=== PATIENT | male | born 1990 | race Caucasian/White ===

== ENCOUNTER 2017-07-20 00:28 | Emergency (ER) | payer SELFPAY ==
--- NOTE | 2017-07-20 00:41 | EDM.PDOC ---
ED HPI GENERAL MEDICAL PROBLEM - General Chief Complaint: Behavioral/Psych Stated Complaint: MENTAL HEALTH EVALUATION Time Seen by Provider: 07/20/17 00:39 - History of Present Illness INITIAL COMMENTS - FREE TEXT/NARRATIVE: HISTORY AND PHYSICAL: History of present illness: Patient 26-year-old male with history of depression who presents with a concern of a depressive episode with long enforcement law enforcement was called and patient expressed suicidal ideation to his sister. He states he still is suicidal and has no plan Review of systems: As per history of present illness and below otherwise all systems reviewed and negative. Past medical history: As per history of present illness and as reviewed below otherwise noncontributory. Surgical history: As per history of present illness and as reviewed below otherwise noncontributory. Social history: No reported history of drug or alcohol abuse. Family history: As per history of present illness and as reviewed below otherwise noncontributory. Physical exam: HEENT: Atraumatic, normocephalic, pupils reactive, negative for conjunctival pallor or scleral icterus, mucous membranes moist, throat clear, neck supple, nontender, trachea midline. Lungs: Clear to auscultation, breath sounds equal bilaterally, chest nontender. Heart: S1S2, regular, negative for clicks, rubs, or JVD. Abdomen: Soft, nondistended, nontender. Negative for masses or hepatosplenomegaly. Negative for costovertebral tenderness. Pelvis: Stable nontender. Genitourinary: Deferred. Rectal: Deferred. Extremities: Atraumatic, negative for cords or calf pain. Neurovascular unremarkable. Neuro: Awake, alert, oriented. Cranial nerves II through XII unremarkable. Cerebellum unremarkable. Motor and sensory unremarkable throughout. Exam nonfocal. Diagnostics: CBC CMP EtOH urine drug screen aspirin Tylenol Therapeutics: None Impression: #1 depressive episode with suicidal ideation Definitive disposition and diagnosis as appropriate pending reevaluation and review of above. - Related Data Allergies Allergy/AdvReac Type Severity Reaction Status Date / Time No Known Allergies Allergy Verified 07/20/17 00:32 Home Meds: Home Meds Escitalopram [Lexapro] 20 mg PO DAILY 07/20/17 [History] ED ROS GENERAL - Review of Systems Review Of Systems: ROS reveals no pertinent complaints other than HPI. ED EXAM, GENERAL - Physical Exam Exam: See Below (See dictated) Course - Vital Signs Last Recorded V/S: Last Vital Signs Temp 37.0 C 07/20/17 00:28 Pulse 121 H 07/20/17 00:28 Resp 18 07/20/17 00:28 BP 163/102 H 07/20/17 00:28 Pulse Ox 121 H 07/20/17 00:28 - Orders/Labs/Meds Orders: Active Orders 24 hr Category Date Time Status EKG Documentation Completion [RC] STAT Care 07/20/17 00:40 Active FREE T3 [REF] Stat Lab 07/20/17 00:56 Received Labs: Laboratory Tests 07/20/17 07/20/17 07/20/17 Range/Units 00:45 00:45 00:56 WBC 8.84 (4.0-11.0) K/uL RBC 5.42 (4.50-5.90) M/uL Hgb 16.7 (13.0-17.0) g/dL Hct 47.3 (38.0-50.0) % MCV 87.3 (80.0-98.0) fL MCH 30.8 (27.0-32.0) pg MCHC 35.3 (31.0-37.0) g/dL RDW Std Deviation 38.1 (28.0-62.0) fl RDW Coeff of Jerad 12 (11.0-15.0) % Plt Count 204 (150-400) K/uL MPV 9.20 (7.40-12.00) fL Neut % (Auto) 51.7 (48.0-80.0) % Lymph % (Auto) 39.5 (16.0-40.0) % [place] % (Auto) 5.9 (0.0-15.0) % Eos % (Auto) 2.7 (0.0-7.0) % Baso % (Auto) 0.2 (0.0-1.5) % Neut # (Auto) 4.6 (1.4-5.7) K/uL Lymph # (Auto) 3.5 H (0.6-2.4) K/uL [place] # (Auto) 0.5 (0.0-0.8) K/uL Eos # (Auto) 0.2 (0.0-0.7) K/uL Baso # (Auto) 0.0 (0.0-0.1) K/uL Sodium (136-146) mmol/L Potassium (3.5-5.1) mmol/L Chloride (98-110) mmol/L Carbon Dioxide (21-31) mmol/L BUN (6.0-23.0) mg/dL Creatinine (0.6-1.5) mg/dL Est Cr Clr Drug Dosing mL/min Estimated GFR (MDRD) ml/min Glucose (60-110) mg/dL Calcium (8.8-10.8) mg/dL Magnesium (1.5-2.3) mEq/L Total Bilirubin (0.1-1.5) mg/dL AST (5-40) IU/L ALT (8-54) IU/L Alkaline Phosphatase (40-150) Total Protein (6.0-8.0) g/dL Albumin (3.5-5.0) g/dL Globulin (2.0-3.5) g/dL Albumin/Globulin Ratio (1.3-2.8) TSH 3rd Generation (0.47-5.0) uIU/mL Urine Color YELLOW Urine Appearance CLEAR Urine pH 6.0 (5.0-8.0) Ur Specific Margie <= 1.005 (1.001-1.035) Urine Protein NEGATIVE (NEGATIVE) mg/dL Urine Glucose (UA) NEGATIVE (NEGATIVE) mg/dL Urine Ketones NEGATIVE (NEGATIVE) mg/dL Urine Occult Blood NEGATIVE (NEGATIVE) Urine Nitrite NEGATIVE (NEGATIVE) Urine Bilirubin NEGATIVE (NEGATIVE) Urine Urobilinogen 0.2 (<2.0) EU/dL Ur Leukocyte Esterase NEGATIVE (NEGATIVE) Urine RBC 0-1 (0-2/HPF) Urine WBC 0-1 (0-5/HPF) Ur Epithelial Cells RARE (NONE-FEW) Urine Bacteria RARE (NEGATIVE) Salicylates (0-20) mg/dL Urine Opiates Screen NEGATIVE (NEGATIVE) Ur Oxycodone Screen NEGATIVE (NEGATIVE) Urine Methadone Screen NEGATIVE (NEGATIVE) Acetaminophen ug/mL Ur Barbiturates Screen NEGATIVE (NEGATIVE) Ur Phencyclidine Scrn NEGATIVE (NEGATIVE) Ur Amphetamine Screen NEGATIVE (NEGATIVE) U Methamphetamines Scrn NEGATIVE (NEGATIVE) U Benzodiazepines Scrn NEGATIVE (NEGATIVE) U Cocaine Metab Screen NEGATIVE (NEGATIVE) U Marijuana (THC) Screen NEGATIVE (NEGATIVE) Ethyl Alcohol mg/dL 07/20/17 Range/Units 00:56 WBC (4.0-11.0) K/uL RBC (4.50-5.90) M/uL Hgb (13.0-17.0) g/dL Hct (38.0-50.0) % MCV (80.0-98.0) fL MCH (27.0-32.0) pg MCHC (31.0-37.0) g/dL RDW Std Deviation (28.0-62.0) fl RDW Coeff of Jerad (11.0-15.0) % Plt Count (150-400) K/uL MPV (7.40-12.00) fL Neut % (Auto) (48.0-80.0) % Lymph % (Auto) (16.0-40.0) % [place] % (Auto) (0.0-15.0) % Eos % (Auto) (0.0-7.0) % Baso % (Auto) (0.0-1.5) % Neut # (Auto) (1.4-5.7) K/uL Lymph # (Auto) (0.6-2.4) K/uL [place] # (Auto) (0.0-0.8) K/uL Eos # (Auto) (0.0-0.7) K/uL Baso # (Auto) (0.0-0.1) K/uL Sodium 137 (136-146) mmol/L Potassium 3.4 L (3.5-5.1) mmol/L Chloride 102 (98-110) mmol/L Carbon Dioxide 20 L (21-31) mmol/L BUN 11 (6.0-23.0) mg/dL Creatinine 0.8 (0.6-1.5) mg/dL Est Cr Clr Drug Dosing 133.12 mL/min Estimated GFR (MDRD) > 60.0 ml/min Glucose 106 (60-110) mg/dL Calcium 9.3 (8.8-10.8) mg/dL Magnesium 1.8 (1.5-2.3) mEq/L Total Bilirubin 0.6 (0.1-1.5) mg/dL AST 21 (5-40) IU/L ALT 44 (8-54) IU/L Alkaline Phosphatase 89 (40-150) Total Protein 7.7 (6.0-8.0) g/dL Albumin 4.6 (3.5-5.0) g/dL Globulin 3.1 (2.0-3.5) g/dL Albumin/Globulin Ratio 1.5 (1.3-2.8) TSH 3rd Generation 2.56 (0.47-5.0) uIU/mL Urine Color Urine Appearance Urine pH (5.0-8.0) Ur Specific Margie (1.001-1.035) Urine Protein (NEGATIVE) mg/dL Urine Glucose (UA) (NEGATIVE) mg/dL Urine Ketones (NEGATIVE) mg/dL Urine Occult Blood (NEGATIVE) Urine Nitrite (NEGATIVE) Urine Bilirubin (NEGATIVE) Urine Urobilinogen (<2.0) EU/dL Ur Leukocyte Esterase (NEGATIVE) Urine RBC (0-2/HPF) Urine WBC (0-5/HPF) Ur Epithelial Cells (NONE-FEW) Urine Bacteria (NEGATIVE) Salicylates < 5.0 (0-20) mg/dL Urine Opiates Screen (NEGATIVE) Ur Oxycodone Screen (NEGATIVE) Urine Methadone Screen (NEGATIVE) Acetaminophen < 3.0 ug/mL Ur Barbiturates Screen (NEGATIVE) Ur Phencyclidine Scrn (NEGATIVE) Ur Amphetamine Screen (NEGATIVE) U Methamphetamines Scrn (NEGATIVE) U Benzodiazepines Scrn (NEGATIVE) U Cocaine Metab Screen (NEGATIVE) U Marijuana (THC) Screen (NEGATIVE) Ethyl Alcohol 277.7 mg/dL Departure - Departure Time of Disposition: 01:48 Disposition: DC/Tfer to Psych Hosp/Unit 65 Condition: Good Clinical Impression: Depression - Discharge Information Referrals: PCP,None [Primary Care Provider] - Forms: ED Department Discharge - My Orders Last 24 Hours: My Active Orders 07/20/17 00:40 EKG Documentation Completion [RC] STAT 07/20/17 00:56 FREE T3 [REF] Stat - Assessment/Plan Last 24 Hours: My Active Orders 07/20/17 00:40 EKG Documentation Completion [RC] STAT 07/20/17 00:56 FREE T3 [REF] Stat
[2017-07-20 01:39] LABS: ACETAMINOPHEN < 3.0 ug/mL; CHLORIDE,CL 102 mmol/L (98-110); SODIUM,NA 137 mmol/L (136-146)
== END 2017-07-20 02:30 ==
LOC: MW.ED 00:28
DX: F32.9 Major depressive disorder, single episode, unspecified (principal); R45.851 Suicidal ideations
CPT/HCPCS: 36415; 80053; 80305; 81001; 83735; 84443; 84481; 85025; 93005; 99285; G0480; 99282

== ENCOUNTER 2018-03-17 17:01 | Emergency (ER) | payer BC ==
--- NOTE | 2018-03-17 18:22 | EDM.PDOCBH ---
ED HPI GENERAL MEDICAL PROBLEM - General Chief Complaint: Drug or Alcohol Abuse Stated Complaint: NEEDS DETOX Time Seen by Provider: 03/17/18 18:17 Source of Information: Reports: Patient History Limitations: Reports: No Limitations - History of Present Illness INITIAL COMMENTS - FREE TEXT/NARRATIVE: HISTORY AND PHYSICAL: []27-year-old male presenting with request of Librium for alcohol withdrawal History of Present Illness: []Patient is concerned that going to "" from withdrawal He has interviewed by phone tomorrow with [facility] in [facility] and wants to return there [place] Review of Systems: As per history of present illness and below otherwise all systems reviewed and negative. Past medical history: As per history of present illness and as reviewed below otherwise noncontributory. Surgical history: As per history of present illness and as reviewed below otherwise noncontributory. Social history: No reported history of drug or alcohol abuse. Family history: As per history of present illness and as reviewed below otherwise noncontributory. Physical exam: Alert gentleman who is strong odor of alcohol present in questions appropriately in full sentences. He is asking about detox here for the next 24 hours have explained to him that our facility is not equipped with that type of care that he made present at [facility] in [place] declined this opportunity HEENT: Atraumatic, normocehpalic, pupils reactive, negative for conjunctival pallor or scleral icterus, mucous membranes moist, throat clear, neck supple, nontender, trachea midline. Lungs: Clear to auscultation, breath sounds equal bilaterally, chest non tender. Heart: S1S2, regular, negative for clicks, rubs, or JVD. Abdomen: Soft, nondistended, nontender. Negative for masses or hepatossplenmegaly. Negative for costovertebral tenderness. Pelvis: Stable nontender. Genitourinary: Deferred. Rectal: Deferred Extremities: Atraumatic, negative for cords or calf pain. Neurovascular unremarkable. Neuro: Awake, alert, oriented. Cranial nerves II through XII unremarkable. Cerebellum unremarkable. Motor and sensory unremarkable throughout. Exam nonfocal. diagnosis: [Therapeutics: Impression: ]Alcohol abuse Plan: []Discharge Prescription for Librium 50 mg BID #10 no refill Follow-up as scheduled with interview so that you may enter [facility] Definitive disposition and diagnosis as appropriate pending reevaluation and review of above. - Related Data Allergies Allergy/AdvReac Type Severity Reaction Status Date / Time No Known Allergies Allergy Verified 03/17/18 17:53 Home Meds: Home Meds Escitalopram [Lexapro] 20 mg PO DAILY 07/20/17 [History] Past Medical History - Past Health History Medical/Surgical History: Denies Medical/Surgical History Psychiatric History: Reports: Addiction, Anxiety, Depression Social & Family History - Family History Family Medical History: Noncontributory - Tobacco Use Smoking Status *Q: Current Every Day Smoker Years of Tobacco use: 6 Packs/Tins Daily: 1 - Caffeine Use Caffeine Use: Reports: Coffee, Energy Drinks, Soda - Recreational Drug Use Recreational Drug Use: No ED ROS GENERAL - Review of Systems Review Of Systems: ROS reveals no pertinent complaints other than HPI. ED EXAM, BEHAVIORAL HEALTH - Physical Exam Exam: See Below (See dictation) COURSE, BEHAVIORAL HEALTH COMP - Course Vital Signs: Last Vital Signs Temp 37.0 C 03/17/18 17:50 Pulse 120 H 03/17/18 17:50 Resp 18 03/17/18 17:50 BP 137/94 H 03/17/18 17:50 Pulse Ox 95 03/17/18 17:50 Departure - Departure Time of Disposition: 18:22 Disposition: Home, Self-Care 01 Condition: Good Clinical Impression: Alcohol abuse - Discharge Information Referrals: PCP,None [Primary Care Provider] - Additional Instructions: The following information is given to patients seen in the emergency department who are being discharged to home. This information is to outline your options for follow-up care. We provide all patients seen in our emergency department with a follow-up referral. The need for follow-up, as well as the timing and circumstances, are variable depending upon the specifics of your emergency department visit. If you don't have a primary care physician on staff, we will provide you with a referral. We always advise you to contact your personal physician following an emergency department visit to inform them of the circumstance of the visit and for follow-up with them and/or the need for any referrals to a consulting specialist. The emergency department will also refer you to a specialist when appropriate. This referral assures that you have the opportunity for followup care with a specialist. All of these measure are taken in an effort to provide you with optimal care, which includes your followup. Under all circumstances we always encourage you to contact your private physician who remains a resource for coordinating your care. When calling for followup care, please make the office aware that this follow-up is from your recent emergency room visit. If for any reason you are refused follow-up, please contact the [facility] emergency department at and asked to speak to the emergency department charge nurse. You have history of alcohol abuse Librium 50 mg twice a day #10 ordered Keep your appointment for interview tomorrow so that [facility] [place]
== END 2018-03-17 18:29 | disposition home or self-care (01) ==
LOC: MW.ED 17:01
DX: F10.10 Alcohol abuse, uncomplicated (principal); F32.9 Major depressive disorder, single episode, unspecified; F17.210 Nicotine dependence, cigarettes, uncomplicated; Z79.899 Other long term (current) drug therapy
CPT/HCPCS: 99283

== ENCOUNTER 2018-03-19 12:07 | Inpatient (IN) | payer BC ==
--- NOTE | 2018-03-19 12:13 | EDM.PDOC ---
<Lilliana Irene - Last Filed: 03/19/18 15:09> ED HPI GENERAL MEDICAL PROBLEM - General Stated Complaint: DRUG OVERDOSE Time Seen by Provider: 03/19/18 12:11 Source of Information: Reports: Patient, EMS, Old Records History Limitations: Reports: No Limitations - History of Present Illness INITIAL COMMENTS - FREE TEXT/NARRATIVE: HISTORY AND PHYSICAL: []27-year-old male presenting with intentional drug overdose dates that he wanted to kill himself History of Present Illness: []he was seen in the emergency department 3 days ago. At that time he was stating that he wanted to go to [facility] in [place] for his alcohol addiction. He states that he has been there previously. This is located in [facility] Review of Systems: As per history of present illness and below otherwise all systems reviewed and negative. Past medical history: As per history of present illness and as reviewed below otherwise noncontributory. Surgical history: As per history of present illness and as reviewed below otherwise noncontributory. Social history: No reported history of drug or alcohol abuse. Family history: As per history of present illness and as reviewed below otherwise noncontributory. Physical exam: HEENT: Atraumatic, normocehpalic, pupils reactive, negative for conjunctival pallor or scleral icterus, mucous membranes moist, throat clear, neck supple, nontender, trachea midline. Lungs: Clear to auscultation, breath sounds equal bilaterally, chest non tender. Heart: S1S2, regular, negative for clicks, rubs, or JVD. Abdomen: Soft, nondistended, nontender. Negative for masses or hepatossplenmegaly. Negative for costovertebral tenderness. Pelvis: Stable nontender. Genitourinary: Deferred. Rectal: Deferred Extremities: Atraumatic, negative for cords or calf pain. Neurovascular unremarkable. Neuro: Awake, alert, oriented. Cranial nerves II through XII unremarkable. Cerebellum unremarkable. Motor and sensory unremarkable throughout. Exam nonfocal. Dr. Granger has been notified of this patient and he will come to the emergency room to assess him prior to admission Dr. Granger is been here and examined the patient will be admitted to ICU Diagnostics: []EKG CBC CMP TSH troponin chest x-ray UA and urine drug screen Therapeutics: []IV fluids Banana bag with 20 of KCl Impression: []Intentional overdose Plan: []Refer for observation Definitive disposition and diagnosis as appropriate pending reevaluation and review of above. Onset: Today, Sudden - Related Data Allergies Allergy/AdvReac Type Severity Reaction Status Date / Time No Known Allergies Allergy Verified 03/19/18 12:14 Home Meds: Home Meds Escitalopram [Lexapro] 25 mg PO DAILY 07/20/17 [History] chlordiazePOXIDE [Librium] 10 mg PO BID 03/19/18 [History] Past Medical History - Past Health History Medical/Surgical History: Denies Medical/Surgical History Psychiatric History: Reports: Addiction, Anxiety, Depression Social & Family History - Family History Family Medical History: Noncontributory - Caffeine Use Caffeine Use: Reports: Coffee, Energy Drinks, Soda ED ROS GENERAL - Review of Systems Review Of Systems: ROS reveals no pertinent complaints other than HPI. ED EXAM, GENERAL - Physical Exam Exam: See Below (see dictation) Course - Vital Signs Last Recorded V/S: Last Vital Signs Temp 36.9 C 03/19/18 12:10 Pulse 96 03/19/18 14:11 Resp 22 H 03/19/18 14:11 BP 120/78 03/19/18 14:11 Pulse Ox 98 03/19/18 14:11 - Orders/Labs/Meds Orders: Active Orders 24 hr Category Date Time Status EKG Documentation Completion [RC] STAT Care 03/19/18 12:22 Active DRUG SCREEN, URINE [URCHEM] Stat Lab 03/19/18 12:20 Ordered UA W/MICROSCOPIC [URIN] Stat Lab 03/19/18 12:20 Ordered MVI, Adult with Vitamin K [Infuvite Adult] 10 ml Med 03/19/18 14:15 Active Thiamine [Vitamin B-1] 100 mg Folic Acid 1 mg Potassium Chloride 20 meq Sodium Chloride 0.9% [Normal Saline] 1,000 ml IV ONETIME Sodium Chloride 0.9% [Saline Flush] Med 03/19/18 12:22 Active 10 ml FLUSH ASDIRECTED PRN Sodium Chloride 0.9% [Saline Flush] Med 03/19/18 12:22 Active 2.5 ml FLUSH ASDIRECTED PRN Saline Lock Insert [OM.PC] Stat Oth 03/19/18 12:22 Ordered Medication Orders Folic Acid (Folic Acid) 1 mg PO DAILY I[facility]EL Multivitamins/Minerals 10 ml/Thiamine HCl 100 mg/ Folic Acid 1 mg/ Potassium Chloride 20 meq/ Sodium Chloride 1,021.2 mls @ 150 mls/hr IV ONETIME ONE Stop: 03/19/18 21:03 Last Infusion: 03/19/18 14:38 Dose: 150 mls/hr Admin: 03/19/18 14:34 Dose: 16.667 mls/hr Lorazepam (Ativan) 0 mg IVPUSH Q4H PRN; Protocol PRN Reason: Agitation Nicotine (Habitrol) 14 mg TRDERM Q24H IZABEL Ondansetron HCl (Zofran) 4 mg IVPUSH Q4H PRN PRN Reason: Nausea Sodium Chloride (Saline Flush) 10 ml FLUSH ASDIRECTED PRN PRN Reason: Keep Vein Open Sodium Chloride (Saline Flush) 2.5 ml FLUSH ASDIRECTED PRN PRN Reason: Keep Vein Open Thiamine HCl (Vitamin B-1) 100 mg PO DAILY [facility] Labs: Laboratory Tests 03/19/18 03/19/18 03/19/18 Range/Units 12:20 12:20 12:20 WBC 6.90 (4.0-11.0) K/uL RBC 5.21 (4.50-5.90) M/uL Hgb 15.9 (13.0-17.0) g/dL Hct 44.7 (38.0-50.0) % MCV 85.8 (80.0-98.0) fL MCH 30.5 (27.0-32.0) pg MCHC 35.6 (31.0-37.0) g/dL RDW Std Deviation 38.8 (28.0-62.0) fl RDW Coeff of Jerad 13 (11.0-15.0) % Plt Count 141 L (150-400) K/uL MPV 9.40 (7.40-12.00) fL Neut % (Auto) 50.7 (48.0-80.0) % Lymph % (Auto) 35.4 (16.0-40.0) % [place] % (Auto) 9.0 (0.0-15.0) % Eos % (Auto) 4.5 (0.0-7.0) % Baso % (Auto) 0.4 (0.0-1.5) % Neut # (Auto) 3.5 (1.4-5.7) K/uL Lymph # (Auto) 2.4 (0.6-2.4) K/uL [place] # (Auto) 0.6 (0.0-0.8) K/uL Eos # (Auto) 0.3 (0.0-0.7) K/uL Baso # (Auto) 0.0 (0.0-0.1) K/uL Nucleated RBC % 0.0 /100WBC Nucleated RBCs # 0 K/uL Sodium (136-148) mmol/L Potassium (3.5-5.1) mmol/L Chloride (98-107) mmol/L Carbon Dioxide (21.0-32.0) mmol/L BUN (7.0-18.0) mg/dL Creatinine (0.8-1.3) mg/dL Est Cr Clr Drug Dosing mL/min Estimated GFR (MDRD) ml/min Glucose (74-106) mg/dL Calcium (8.5-10.1) mg/dL Magnesium (1.8-2.4) mg/dL Total Bilirubin (0.2-1.0) mg/dL AST (15-37) IU/L ALT (14-63) IU/L Alkaline Phosphatase (46-116) U/L Total Protein (6.4-8.2) g/dL Albumin (3.4-5.0) g/dL Globulin (2.0-3.5) g/dL Albumin/Globulin Ratio (1.3-2.8) TSH 3rd Generation (0.36-3.74) uIU/mL Urine Color YELLOW Urine Appearance CLEAR Urine pH 6.0 (5.0-8.0) Ur Specific [place] <= 1.005 (1.001-1.035) Urine Protein NEGATIVE (NEGATIVE) mg/dL Urine Glucose (UA) NEGATIVE (NEGATIVE) mg/dL Urine Ketones NEGATIVE (NEGATIVE) mg/dL Urine Occult Blood NEGATIVE (NEGATIVE) Urine Nitrite NEGATIVE (NEGATIVE) Urine Bilirubin NEGATIVE (NEGATIVE) Urine Urobilinogen 0.2 (<2.0) EU/dL Ur Leukocyte Esterase NEGATIVE (NEGATIVE) Urine RBC 0-1 (0-2/HPF) Urine WBC 0-1 (0-5/HPF) Ur Epithelial Cells RARE (NONE-FEW) Urine Bacteria RARE (NEGATIVE) Salicylates (0-20) mg/dL Urine Opiates Screen NEGATIVE (NEGATIVE) Ur Oxycodone Screen NEGATIVE (NEGATIVE) Urine Methadone Screen NEGATIVE (NEGATIVE) Acetaminophen ug/mL Ur Barbiturates Screen NEGATIVE (NEGATIVE) Ur Phencyclidine Scrn NEGATIVE (NEGATIVE) Ur Amphetamine Screen NEGATIVE (NEGATIVE) U Methamphetamines Scrn NEGATIVE (NEGATIVE) U Benzodiazepines Scrn POSITIVE (NEGATIVE) U Cocaine Metab Screen NEGATIVE (NEGATIVE) U Marijuana (THC) Screen NEGATIVE (NEGATIVE) Ethyl Alcohol mg/dL 03/19/18 Range/Units 12:20 WBC (4.0-11.0) K/uL RBC (4.50-5.90) M/uL Hgb (13.0-17.0) g/dL Hct (38.0-50.0) % MCV (80.0-98.0) fL MCH (27.0-32.0) pg MCHC (31.0-37.0) g/dL RDW Std Deviation (28.0-62.0) fl RDW Coeff of Jerad (11.0-15.0) % Plt Count (150-400) K/uL MPV (7.40-12.00) fL Neut % (Auto) (48.0-80.0) % Lymph % (Auto) (16.0-40.0) % [place] % (Auto) (0.0-15.0) % Eos % (Auto) (0.0-7.0) % Baso % (Auto) (0.0-1.5) % Neut # (Auto) (1.4-5.7) K/uL Lymph # (Auto) (0.6-2.4) K/uL [place] # (Auto) (0.0-0.8) K/uL Eos # (Auto) (0.0-0.7) K/uL Baso # (Auto) (0.0-0.1) K/uL Nucleated RBC % /100WBC Nucleated RBCs # K/uL Sodium 142 (136-148) mmol/L Potassium 2.9 L (3.5-5.1) mmol/L Chloride 105 (98-107) mmol/L Carbon Dioxide 25.4 (21.0-32.0) mmol/L BUN 15 (7.0-18.0) mg/dL Creatinine 1.0 (0.8-1.3) mg/dL Est Cr Clr Drug Dosing 120.27 mL/min Estimated GFR (MDRD) > 60.0 ml/min Glucose 158 H (74-106) mg/dL Calcium 8.4 L (8.5-10.1) mg/dL Magnesium 2.5 H (1.8-2.4) mg/dL Total Bilirubin 0.4 (0.2-1.0) mg/dL AST 25 (15-37) IU/L ALT 58 (14-63) IU/L Alkaline Phosphatase 102 (46-116) U/L Total Protein 6.8 (6.4-8.2) g/dL Albumin 3.7 (3.4-5.0) g/dL Globulin 3.1 (2.0-3.5) g/dL Albumin/Globulin Ratio 1.2 L (1.3-2.8) TSH 3rd Generation 0.73 (0.36-3.74) uIU/mL Urine Color Urine Appearance Urine pH (5.0-8.0) Ur Specific [place] (1.001-1.035) Urine Protein (NEGATIVE) mg/dL Urine Glucose (UA) (NEGATIVE) mg/dL Urine Ketones (NEGATIVE) mg/dL Urine Occult Blood (NEGATIVE) Urine Nitrite (NEGATIVE) Urine Bilirubin (NEGATIVE) Urine Urobilinogen (<2.0) EU/dL Ur Leukocyte Esterase (NEGATIVE) Urine RBC (0-2/HPF) Urine WBC (0-5/HPF) Ur Epithelial Cells (NONE-FEW) Urine Bacteria (NEGATIVE) Salicylates 2.6 (0-20) mg/dL Urine Opiates Screen (NEGATIVE) Ur Oxycodone Screen (NEGATIVE) Urine Methadone Screen (NEGATIVE) Acetaminophen 0.0 ug/mL Ur Barbiturates Screen (NEGATIVE) Ur Phencyclidine Scrn (NEGATIVE) Ur Amphetamine Screen (NEGATIVE) U Methamphetamines Scrn (NEGATIVE) U Benzodiazepines Scrn (NEGATIVE) U Cocaine Metab Screen (NEGATIVE) U Marijuana (THC) Screen (NEGATIVE) Ethyl Alcohol 291 mg/dL Meds: Medications Generic Name Dose Route Start Last Admin Trade Name Freq PRN Reason Stop Dose Admin Folic Acid 1 mg 03/19/18 16:15 Folic Acid PO DAILY [facility] Multivitamins/Minerals 10 ml/ 1,021.2 mls @ 150 mls/hr 03/19/18 14:15 14:38 Thiamine HCl 100 mg/ Folic IV 03/19/18 21:03 150 mls/hr Acid 1 mg/ Potassium Chloride ONETIME ONE Infusion 20 meq/ Sodium Chloride Lorazepam 0 mg 03/19/18 16:09 Ativan IVPUSH Q4H PRN Agitation Protocol Nicotine 14 mg 03/19/18 16:15 Habitrol TRDERM Q24H I[facility] Ondansetron HCl 4 mg 03/19/18 16:07 Zofran IVPUSH Q4H PRN Nausea Sodium Chloride 10 ml 03/19/18 12:22 Saline Flush FLUSH ASDIRECTED PRN Keep Vein Open Sodium Chloride 2.5 ml 03/19/18 12:22 Saline Flush FLUSH ASDIRECTED PRN Keep Vein Open Thiamine HCl 100 mg 03/19/18 16:15 Vitamin B-1 PO DAILY IZABEL Discontinued Medications Generic Name Dose Route Start Last Admin Trade Name Freq PRN Reason Stop Dose Admin Sodium Chloride 1,000 mls @ 999 mls/hr 03/19/18 12:22 03/19/18 12:56 Normal Saline IV 03/19/18 13:22 999 mls/hr STAT ONE Administration Multivitamins/Minerals 20 ml/ 1,021.2 mls @ 250 drops/hr 03/19/18 13:44 03/19 15:31 Thiamine HCl 100 mg/ Folic IV 03/22/18 03:00 Not Given Acid 1 mg/ Sodium Chloride ONETIME ONE Departure - Departure Time of Disposition: 15:10 Disposition: Refer to Observation Condition: Fair Clinical Impression: Alcohol abuse, Benzodiazepine abuse - Discharge Information <Norma Burden - Last Filed: 03/19/18 16:14> ED HPI GENERAL MEDICAL PROBLEM - History of Present Illness INITIAL COMMENTS - FREE TEXT/NARRATIVE: This is Dr. Burden dictating addendum note as I have also seen this patient and agree with the above history and physical. The patient does have a history of alcohol abuse and did get the Librium prescribed to help him until he could get into his rehabilitation program and he tells me also that he intentionally took those to harm himself. He is awake alert and maintaining his airway and has stable oxygen saturations and vitals. Dr. Granger has come to see the patient and feels the patient should be in an ICU setting in light of his overdose. The patient is aware of his admission here and is comfortable with such. I performed an emergency group home form pending his medical clearance he can be reevaluated for psychiatric transfer and further care.
[2018-03-19] MEDS ORDERED: Sodium Chloride 0.9% 1,000 ML IV ONE (12:22)
[2018-03-19] MEDS ORDERED: Sodium Chloride 0.9% 2.5 ML Syringe FLUSH PRN (12:22)
[2018-03-19] MEDS ORDERED: Sodium Chloride 0.9% 10 ML Syringe FLUSH PRN (12:22)
[2018-03-19 13:13] LABS: CHLORIDE,CL 105 mmol/L (98-107); SODIUM,NA 142 mmol/L (136-148)
[2018-03-19] MEDS ORDERED: VITAMIN K IV ONE ×9 (13:44→14:15)
[2018-03-19] MEDS ORDERED: THIAMINE IV ONE ×9 (13:44→14:15)
[2018-03-19] MEDS ORDERED: FOLIC ACID IV ONE ×9 (13:44→14:15)
[2018-03-19] MEDS ORDERED: [UNRECOGNIZED DRUG - OTHER] IV ONE ×4 (13:44)
[2018-03-19] MEDS ORDERED: MVI IV ONE ×9 (13:44→14:15)
[2018-03-19] MEDS ORDERED: [UNRECOGNIZED DRUG - OTHER] IV ONE ×5 (14:15)
[2018-03-19] MEDS ORDERED: Ondansetron 4 MG/2 ML SDV IVPUSH PRN (16:07)
[2018-03-19] MEDS ORDERED: LORazepam 2 MG/ML SDV IVPUSH PRN (16:09)
--- NOTE | 2018-03-19 16:13 | PCM.HP ---
H&P History of Present Illness - General Date of Service: 03/19/18 Admit Problem/Dx: Admission Diagnosis/Problem Admission Diagnosis/Problem Overdose of analgesic - History of Present Illness Initial Comments - Free Text/Narative: 27 yo male with pmh of ETOH abuse and dependence who three days ago was seen in the ED and was prescribed Librium to help with alcohol withdrawal. Today patient reported he drank a lot and then took all the Librium he had left which supposedly was around 300mg. He thought that since he took the pills that it meant he tried to kill himself. He reports drinking about 40 beers a day. He reports being discharged from inpatient rehab last January. - Related Data Allergies/Adverse Reactions: Allergies Allergy/AdvReac Type Severity Reaction Status Date / Time No Known Allergies Allergy Verified 03/19/18 12:14 Home Medications: Home Meds Escitalopram [Lexapro] 30 mg PO DAILY 30 Days #90 tablet 03/22/18 [Rx] Folic Acid 1 mg PO DAILY #30 tablet 03/22/18 [Rx] QUEtiapine Fumarate [Seroquel] 50 mg PO BEDTIME #30 tablet 03/22/18 [Rx] Thiamine [Vitamin B-1] 100 mg PO DAILY #30 tablet 03/22/18 [Rx] Topiramate [Topamax] 25 mg PO BID #60 tab 03/22/18 [Rx] Past Medical History - Past Health History Medical/Surgical History: Denies Medical/Surgical History Psychiatric History: Reports: Addiction, Anxiety, Depression - Infectious Disease History Infectious Disease History: Reports: Chicken Pox Social & Family History - Family History Family Medical History: Noncontributory - Tobacco Use Smoking Status *Q: Unknown Ever Smoked - Caffeine Use Caffeine Use: Reports: Coffee, Energy Drinks, Soda - Recreational Drug Use Recreational Drug Use: No H&P Review of Systems - Review of Systems: Review Of Systems: ROS reveals no pertinent complaints other than HPI. Exam - Exam Exam: See Below - Vital Signs Vital Signs: Last Vital Signs Temp 36.9 C 03/19/18 12:10 Pulse 96 03/19/18 14:11 Resp 22 H 03/19/18 14:11 BP 120/78 03/19/18 14:11 Pulse Ox 98 03/19/18 14:11 Weight: 111.402 kg - Exam General: Alert, Oriented HEENT: Mucosa Moist & [employer] Neck: Supple Lungs: Clear to Auscultation, Normal Respiratory Effort Cardiovascular: Regular Rate, Regular Rhythm GI/Abdominal Exam: Soft, Non-Tender Extremities: Non-Tender, No Pedal Edema Skin: Warm, Dry, Intact Neurological: No: Focal Deficit - Patient Data Lab Results Last 24 hrs: Laboratory Results - last 24 hr 03/19/18 03/19/18 03/19/18 Range/Units 12:20 12:20 12:20 WBC 6.90 (4.0-11.0) K/uL RBC 5.21 (4.50-5.90) M/uL Hgb 15.9 (13.0-17.0) g/dL Hct 44.7 (38.0-50.0) % MCV 85.8 (80.0-98.0) fL MCH 30.5 (27.0-32.0) pg MCHC 35.6 (31.0-37.0) g/dL RDW Std Deviation 38.8 (28.0-62.0) fl RDW Coeff of Jerad 13 (11.0-15.0) % Plt Count 141 L (150-400) K/uL MPV 9.40 (7.40-12.00) fL Neut % (Auto) 50.7 (48.0-80.0) % Lymph % (Auto) 35.4 (16.0-40.0) % [place] % (Auto) 9.0 (0.0-15.0) % Eos % (Auto) 4.5 (0.0-7.0) % Baso % (Auto) 0.4 (0.0-1.5) % Neut # (Auto) 3.5 (1.4-5.7) K/uL Lymph # (Auto) 2.4 (0.6-2.4) K/uL [place] # (Auto) 0.6 (0.0-0.8) K/uL Eos # (Auto) 0.3 (0.0-0.7) K/uL Baso # (Auto) 0.0 (0.0-0.1) K/uL Nucleated RBC % 0.0 /100WBC Nucleated RBCs # 0 K/uL Sodium (136-148) mmol/L Potassium (3.5-5.1) mmol/L Chloride (98-107) mmol/L Carbon Dioxide (21.0-32.0) mmol/L BUN (7.0-18.0) mg/dL Creatinine (0.8-1.3) mg/dL Est Cr Clr Drug Dosing mL/min Estimated GFR (MDRD) ml/min Glucose (74-106) mg/dL Calcium (8.5-10.1) mg/dL Magnesium (1.8-2.4) mg/dL Total Bilirubin (0.2-1.0) mg/dL AST (15-37) IU/L ALT (14-63) IU/L Alkaline Phosphatase (46-116) U/L Total Protein (6.4-8.2) g/dL Albumin (3.4-5.0) g/dL Globulin (2.0-3.5) g/dL Albumin/Globulin Ratio (1.3-2.8) TSH 3rd Generation (0.36-3.74) uIU/mL Urine Color YELLOW Urine Appearance CLEAR Urine pH 6.0 (5.0-8.0) Ur Specific [place] <= 1.005 (1.001-1.035) Urine Protein NEGATIVE (NEGATIVE) mg/dL Urine Glucose (UA) NEGATIVE (NEGATIVE) mg/dL Urine Ketones NEGATIVE (NEGATIVE) mg/dL Urine Occult Blood NEGATIVE (NEGATIVE) Urine Nitrite NEGATIVE (NEGATIVE) Urine Bilirubin NEGATIVE (NEGATIVE) Urine Urobilinogen 0.2 (<2.0) EU/dL Ur Leukocyte Esterase NEGATIVE (NEGATIVE) Urine RBC 0-1 (0-2/HPF) Urine WBC 0-1 (0-5/HPF) Ur Epithelial Cells RARE (NONE-FEW) Urine Bacteria RARE (NEGATIVE) Salicylates (0-20) mg/dL Urine Opiates Screen NEGATIVE (NEGATIVE) Ur Oxycodone Screen NEGATIVE (NEGATIVE) Urine Methadone Screen NEGATIVE (NEGATIVE) Acetaminophen ug/mL Ur Barbiturates Screen NEGATIVE (NEGATIVE) Ur Phencyclidine Scrn NEGATIVE (NEGATIVE) Ur Amphetamine Screen NEGATIVE (NEGATIVE) U Methamphetamines Scrn NEGATIVE (NEGATIVE) U Benzodiazepines Scrn POSITIVE (NEGATIVE) U Cocaine Metab Screen NEGATIVE (NEGATIVE) U Marijuana (THC) Screen NEGATIVE (NEGATIVE) Ethyl Alcohol mg/dL 03/19/18 Range/Units 12:20 WBC (4.0-11.0) K/uL RBC (4.50-5.90) M/uL Hgb (13.0-17.0) g/dL Hct (38.0-50.0) % MCV (80.0-98.0) fL MCH (27.0-32.0) pg MCHC (31.0-37.0) g/dL RDW Std Deviation (28.0-62.0) fl RDW Coeff of Jerad (11.0-15.0) % Plt Count (150-400) K/uL MPV (7.40-12.00) fL Neut % (Auto) (48.0-80.0) % Lymph % (Auto) (16.0-40.0) % [place] % (Auto) (0.0-15.0) % Eos % (Auto) (0.0-7.0) % Baso % (Auto) (0.0-1.5) % Neut # (Auto) (1.4-5.7) K/uL Lymph # (Auto) (0.6-2.4) K/uL [place] # (Auto) (0.0-0.8) K/uL Eos # (Auto) (0.0-0.7) K/uL Baso # (Auto) (0.0-0.1) K/uL Nucleated RBC % /100WBC Nucleated RBCs # K/uL Sodium 142 (136-148) mmol/L Potassium 2.9 L (3.5-5.1) mmol/L Chloride 105 (98-107) mmol/L Carbon Dioxide 25.4 (21.0-32.0) mmol/L BUN 15 (7.0-18.0) mg/dL Creatinine 1.0 (0.8-1.3) mg/dL Est Cr Clr Drug Dosing 120.27 mL/min Estimated GFR (MDRD) > 60.0 ml/min Glucose 158 H (74-106) mg/dL Calcium 8.4 L (8.5-10.1) mg/dL Magnesium 2.5 H (1.8-2.4) mg/dL Total Bilirubin 0.4 (0.2-1.0) mg/dL AST 25 (15-37) IU/L ALT 58 (14-63) IU/L Alkaline Phosphatase 102 (46-116) U/L Total Protein 6.8 (6.4-8.2) g/dL Albumin 3.7 (3.4-5.0) g/dL Globulin 3.1 (2.0-3.5) g/dL Albumin/Globulin Ratio 1.2 L (1.3-2.8) TSH 3rd Generation 0.73 (0.36-3.74) uIU/mL Urine Color Urine Appearance Urine pH (5.0-8.0) Ur Specific [place] (1.001-1.035) Urine Protein (NEGATIVE) mg/dL Urine Glucose (UA) (NEGATIVE) mg/dL Urine Ketones (NEGATIVE) mg/dL Urine Occult Blood (NEGATIVE) Urine Nitrite (NEGATIVE) Urine Bilirubin (NEGATIVE) Urine Urobilinogen (<2.0) EU/dL Ur Leukocyte Esterase (NEGATIVE) Urine RBC (0-2/HPF) Urine WBC (0-5/HPF) Ur Epithelial Cells (NONE-FEW) Urine Bacteria (NEGATIVE) Salicylates 2.6 (0-20) mg/dL Urine Opiates Screen (NEGATIVE) Ur Oxycodone Screen (NEGATIVE) Urine Methadone Screen (NEGATIVE) Acetaminophen 0.0 ug/mL Ur Barbiturates Screen (NEGATIVE) Ur Phencyclidine Scrn (NEGATIVE) Ur Amphetamine Screen (NEGATIVE) U Methamphetamines Scrn (NEGATIVE) U Benzodiazepines Scrn (NEGATIVE) U Cocaine Metab Screen (NEGATIVE) U Marijuana (THC) Screen (NEGATIVE) Ethyl Alcohol 291 mg/dL Result Diagrams: 03/20/18 06:08 03/20/18 06:08 Problem List Initiated/Reviewed/Updated: Yes Orders Last 24hrs: Active Orders 24 hr Category Date Time Status Patient Status [ADT] Stat ADT 03/19/18 15:38 Active EKG Documentation Completion [RC] STAT Care 03/19/18 12:22 Active Oxygen Therapy [RC] PRN Care 03/19/18 16:07 Ordered Up ad Catherine [RC] ASDIRECTED Care 03/19/18 16:07 Ordered VTE/DVT Education [RC] PER UNIT ROUTINE Care 03/19/18 16:07 Ordered Vital Signs [RC] Q4H Care 03/19/18 16:07 Ordered Regular Diet [DIET] Diet 03/19/18 Dinner Active BASIC METABOLIC PANEL,BMP [CHEM] AM Lab 03/20/18 05:11 Ordered CBC WITH AUTO DIFF [HEME] AM Lab 03/20/18 05:11 Ordered DRUG SCREEN, URINE [URCHEM] Stat Lab 03/19/18 12:20 Ordered UA W/MICROSCOPIC [URIN] Stat Lab 03/19/18 12:20 Ordered MVI, Adult with Vitamin K [Infuvite Adult] 10 ml Med 03/19/18 14:15 Active Thiamine [Vitamin B-1] 100 mg Folic Acid 1 mg Potassium Chloride 20 meq Sodium Chloride 0.9% [Normal Saline] 1,000 ml IV ONETIME Nicotine [Habitrol] Med 03/19/18 16:15 Ordered 14 mg TRDERM DAILY Ondansetron [Zofran] Med 03/19/18 16:07 Ordered 4 mg IVPUSH Q4H PRN Sodium Chloride 0.9% [Saline Flush] Med 03/19/18 12:22 Active 10 ml FLUSH ASDIRECTED PRN Sodium Chloride 0.9% [Saline Flush] Med 03/19/18 12:22 Active 2.5 ml FLUSH ASDIRECTED PRN Saline Lock Insert [OM.PC] Stat Oth 03/19/18 12:22 Ordered Sequential Compression Device [OM.PC] Per Unit Routine Oth 03/19/18 16:08 Ordered Resuscitation Status Routine Resus Stat 03/19/18 16:07 Ordered Medication Orders Multivitamins/Minerals 10 ml/Thiamine HCl 100 mg/ Folic Acid 1 mg/ Potassium Chloride 20 meq/ Sodium Chloride 1,021.2 mls @ 150 mls/hr IV ONETIME ONE Stop: 03/19/18 21:03 Last Infusion: 03/19/18 14:38 Dose: 150 mls/hr Admin: 03/19/18 14:34 Dose: 16.667 mls/hr Nicotine (Habitrol) 14 mg TRDERM DAILY IZABEL Sodium Chloride (Saline Flush) 10 ml FLUSH ASDIRECTED PRN PRN Reason: Keep Vein Open Sodium Chloride (Saline Flush) 2.5 ml FLUSH ASDIRECTED PRN PRN Reason: Keep Vein Open Assessment/Plan Comment:: 27 yo male presented with ETOH intoxication, benzo overdose and suicidal ideation. We will closely monitor the patient as we detox. We will give thiamin and folic acid. Will place on CIWA protocol.
[2018-03-19] MEDS: Thiamine 100 MG Tab PO SCH (16:38)
[2018-03-19] MEDS: Folic Acid 1 MG Tab PO SCH (16:38)
[2018-03-19] MEDS: Nicotine 14 MG/24 Hr Patch TRDERM SCH (16:38)
[2018-03-19] MEDS ORDERED: Potassium Chloride 20 MEQ Tab.ER PO ONE (19:21)
[2018-03-19] MEDS: Sodium Chloride 0.9% 1,000 ML IV SCH (20:50)
[2018-03-20] MEDS: Sodium Chloride 0.9% 1,000 ML IV SCH ×2 (04:57→13:25)
[2018-03-20 06:31] LABS: CHLORIDE,CL 110 mmol/L (98-107); SODIUM,NA 142 mmol/L (136-148)
[2018-03-20] MEDS: Thiamine 100 MG Tab PO SCH (08:18)
[2018-03-20] MEDS: Folic Acid 1 MG Tab PO SCH (08:18)
--- NOTE | 2018-03-20 10:47 | PCM.PN ---
- General Info Date of Service: 03/20/18 Admission Dx/Problem (Free Text): Admission Diagnosis/Problem Admission Diagnosis/Problem Overdose of analgesic Subjective Update: Feeling ok this morning. No longer suicidal. Reports not remembering making threats of suicide. He reports he took Librium to help with withdrawl. He is hoping to get into [place], [place] for rehabilitation. He reports he is awaiting insurance acceptance for this center and is expecting a call at any time. Denies chest pain or SOB. Functional Status: Reports: Pain Controlled, Tolerating Diet, Ambulating, Urinating - Review of Systems General: Reports: No Symptoms. Denies: Weakness, Fatigue, Malaise HEENT: Reports: No Symptoms. Denies: Headaches, Sore Throat, Visual Changes Pulmonary: Reports: No Symptoms. Denies: Shortness of Breath Cardiovascular: Reports: No Symptoms. Denies: Chest Pain, Palpitations, Orthopnea Gastrointestinal: Reports: No Symptoms. Denies: Abdominal Pain, Nausea, Vomiting Genitourinary: Reports: No Symptoms. Denies: Dysuria, Frequency, Burning Skin: Reports: No Symptoms Neurological: Reports: No Symptoms Psychiatric: Reports: No Symptoms - Patient Data Vitals - Most Recent: Last Vital Signs Temp 97.5 F 03/20/18 08:00 Pulse 96 03/19/18 14:11 Resp 18 03/20/18 10:00 BP 123/79 03/20/18 10:00 Pulse Ox 93 L 03/20/18 10:00 Weight - Most Recent: 111.402 kg I&O - Last 24 Hours: Intake & Output 03/19/18 03/20/18 03/20/18 22:59 06:59 14:59 Intake Total 1320 2445 740 Output Total 1100 250 Balance 1320 1345 490 Lab Results Last 24 Hours: Laboratory Results - last 24 hr 03/19/18 03/19/18 03/19/18 Range/Units 12:20 12:20 12:20 WBC 6.90 (4.0-11.0) K/uL RBC 5.21 (4.50-5.90) M/uL Hgb 15.9 (13.0-17.0) g/dL Hct 44.7 (38.0-50.0) % MCV 85.8 (80.0-98.0) fL MCH 30.5 (27.0-32.0) pg MCHC 35.6 (31.0-37.0) g/dL RDW Std Deviation 38.8 (28.0-62.0) fl RDW Coeff of Jerad 13 (11.0-15.0) % Plt Count 141 L (150-400) K/uL MPV 9.40 (7.40-12.00) fL Neut % (Auto) 50.7 (48.0-80.0) % Lymph % (Auto) 35.4 (16.0-40.0) % [place] % (Auto) 9.0 (0.0-15.0) % Eos % (Auto) 4.5 (0.0-7.0) % Baso % (Auto) 0.4 (0.0-1.5) % Neut # (Auto) 3.5 (1.4-5.7) K/uL Lymph # (Auto) 2.4 (0.6-2.4) K/uL [place] # (Auto) 0.6 (0.0-0.8) K/uL Eos # (Auto) 0.3 (0.0-0.7) K/uL Baso # (Auto) 0.0 (0.0-0.1) K/uL Nucleated RBC % 0.0 /100WBC Nucleated RBCs # 0 K/uL Sodium (136-148) mmol/L Potassium (3.5-5.1) mmol/L Chloride (98-107) mmol/L Carbon Dioxide (21.0-32.0) mmol/L BUN (7.0-18.0) mg/dL Creatinine (0.8-1.3) mg/dL Est Cr Clr Drug Dosing mL/min Estimated GFR (MDRD) ml/min Glucose (74-106) mg/dL Calcium (8.5-10.1) mg/dL Magnesium (1.8-2.4) mg/dL Total Bilirubin (0.2-1.0) mg/dL AST (15-37) IU/L ALT (14-63) IU/L Alkaline Phosphatase (46-116) U/L Total Protein (6.4-8.2) g/dL Albumin (3.4-5.0) g/dL Globulin (2.0-3.5) g/dL Albumin/Globulin Ratio (1.3-2.8) TSH 3rd Generation (0.36-3.74) uIU/mL Urine Color YELLOW Urine Appearance CLEAR Urine pH 6.0 (5.0-8.0) Ur Specific [place] <= 1.005 (1.001-1.035) Urine Protein NEGATIVE (NEGATIVE) mg/dL Urine Glucose (UA) NEGATIVE (NEGATIVE) mg/dL Urine Ketones NEGATIVE (NEGATIVE) mg/dL Urine Occult Blood NEGATIVE (NEGATIVE) Urine Nitrite NEGATIVE (NEGATIVE) Urine Bilirubin NEGATIVE (NEGATIVE) Urine Urobilinogen 0.2 (<2.0) EU/dL Ur Leukocyte Esterase NEGATIVE (NEGATIVE) Urine RBC 0-1 (0-2/HPF) Urine WBC 0-1 (0-5/HPF) Ur Epithelial Cells RARE (NONE-FEW) Urine Bacteria RARE (NEGATIVE) Salicylates (0-20) mg/dL Urine Opiates Screen NEGATIVE (NEGATIVE) Ur Oxycodone Screen NEGATIVE (NEGATIVE) Urine Methadone Screen NEGATIVE (NEGATIVE) Acetaminophen ug/mL Ur Barbiturates Screen NEGATIVE (NEGATIVE) Ur Phencyclidine Scrn NEGATIVE (NEGATIVE) Ur Amphetamine Screen NEGATIVE (NEGATIVE) U Methamphetamines Scrn NEGATIVE (NEGATIVE) U Benzodiazepines Scrn POSITIVE (NEGATIVE) U Cocaine Metab Screen NEGATIVE (NEGATIVE) U Marijuana (THC) Screen NEGATIVE (NEGATIVE) Ethyl Alcohol mg/dL 03/19/18 03/20/18 03/20/18 Range/Units 12:20 06:08 06:08 WBC 6.64 (4.0-11.0) K/uL RBC 4.94 (4.50-5.90) M/uL Hgb 15.0 (13.0-17.0) g/dL Hct 43.1 (38.0-50.0) % MCV 87.2 (80.0-98.0) fL MCH 30.4 (27.0-32.0) pg MCHC 34.8 (31.0-37.0) g/dL RDW Std Deviation 41.2 (28.0-62.0) fl RDW Coeff of Jerad 13 (11.0-15.0) % Plt Count 127 L (150-400) K/uL MPV 9.20 (7.40-12.00) fL Neut % (Auto) 46.5 L (48.0-80.0) % Lymph % (Auto) 42.3 H (16.0-40.0) % [place] % (Auto) 5.9 (0.0-15.0) % Eos % (Auto) 5.0 (0.0-7.0) % Baso % (Auto) 0.3 (0.0-1.5) % Neut # (Auto) 3.1 (1.4-5.7) K/uL Lymph # (Auto) 2.8 H (0.6-2.4) K/uL [place] # (Auto) 0.4 (0.0-0.8) K/uL Eos # (Auto) 0.3 (0.0-0.7) K/uL Baso # (Auto) 0.0 (0.0-0.1) K/uL Nucleated RBC % 0.0 /100WBC Nucleated RBCs # 0 K/uL Sodium 142 142 (136-148) mmol/L Potassium 2.9 L 4.2 (3.5-5.1) mmol/L Chloride 105 110 H (98-107) mmol/L Carbon Dioxide 25.4 26.8 (21.0-32.0) mmol/L BUN 15 12 (7.0-18.0) mg/dL Creatinine 1.0 1.0 (0.8-1.3) mg/dL Est Cr Clr Drug Dosing 120.27 109.25 mL/min Estimated GFR (MDRD) > 60.0 > 60.0 ml/min Glucose 158 H 89 (74-106) mg/dL Calcium 8.4 L 8.0 L (8.5-10.1) mg/dL Magnesium 2.5 H (1.8-2.4) mg/dL Total Bilirubin 0.4 (0.2-1.0) mg/dL AST 25 (15-37) IU/L ALT 58 (14-63) IU/L Alkaline Phosphatase 102 (46-116) U/L Total Protein 6.8 (6.4-8.2) g/dL Albumin 3.7 (3.4-5.0) g/dL Globulin 3.1 (2.0-3.5) g/dL Albumin/Globulin Ratio 1.2 L (1.3-2.8) TSH 3rd Generation 0.73 (0.36-3.74) uIU/mL Urine Color Urine Appearance Urine pH (5.0-8.0) Ur Specific [place] (1.001-1.035) Urine Protein (NEGATIVE) mg/dL Urine Glucose (UA) (NEGATIVE) mg/dL Urine Ketones (NEGATIVE) mg/dL Urine Occult Blood (NEGATIVE) Urine Nitrite (NEGATIVE) Urine Bilirubin (NEGATIVE) Urine Urobilinogen (<2.0) EU/dL Ur Leukocyte Esterase (NEGATIVE) Urine RBC (0-2/HPF) Urine WBC (0-5/HPF) Ur Epithelial Cells (NONE-FEW) Urine Bacteria (NEGATIVE) Salicylates 2.6 (0-20) mg/dL Urine Opiates Screen (NEGATIVE) Ur Oxycodone Screen (NEGATIVE) Urine Methadone Screen (NEGATIVE) Acetaminophen 0.0 ug/mL Ur Barbiturates Screen (NEGATIVE) Ur Phencyclidine Scrn (NEGATIVE) Ur Amphetamine Screen (NEGATIVE) U Methamphetamines Scrn (NEGATIVE) U Benzodiazepines Scrn (NEGATIVE) U Cocaine Metab Screen (NEGATIVE) U Marijuana (THC) Screen (NEGATIVE) Ethyl Alcohol 291 mg/dL Med Orders - Current: Current Medications Folic Acid (Folic Acid) 1 mg PO DAILY [facility] Last Admin: 03/20/18 08:18 Dose: 1 mg Sodium Chloride (Normal Saline) 1,000 mls @ 125 mls/hr IV ASDIRECTED [facility] Last Admin: 03/20/18 04:57 Dose: 125 mls/hr Lorazepam (Ativan) 0 mg IVPUSH Q4H PRN; Protocol PRN Reason: Agitation Nicotine (Habitrol) 14 mg TRDERM Q24H [facility] Last Admin: 03/19/18 16:38 Dose: 14 mg Ondansetron HCl (Zofran) 4 mg IVPUSH Q4H PRN PRN Reason: Nausea Sodium Chloride (Saline Flush) 10 ml FLUSH ASDIRECTED PRN PRN Reason: Keep Vein Open Sodium Chloride (Saline Flush) 2.5 ml FLUSH ASDIRECTED PRN PRN Reason: Keep Vein Open Thiamine HCl (Vitamin B-1) 100 mg PO DAILY [facility] Last Admin: 03/20/18 08:18 Dose: 100 mg Discontinued Medications Sodium Chloride (Normal Saline) 1,000 mls @ 999 mls/hr IV STAT ONE Stop: 03/19/18 13:22 Last Admin: 03/19/18 12:56 Dose: 999 mls/hr Multivitamins/Minerals 20 ml/Thiamine HCl 100 mg/ Folic Acid 1 mg/ Sodium Chloride 1,021.2 mls @ 250 drops/hr IV ONETIME ONE Stop: 03/22/18 03:00 Last Admin: 03/19/18 15:31 Dose: Not Given Multivitamins/Minerals 10 ml/Thiamine HCl 100 mg/ Folic Acid 1 mg/ Potassium Chloride 20 meq/ Sodium Chloride 1,021.2 mls @ 150 mls/hr IV ONETIME ONE Stop: 03/19/18 21:03 Last Infusion: 03/19/18 14:38 Dose: 150 mls/hr Potassium Chloride (Klor-Con M20) 20 meq PO ONETIME ONE Stop: 03/19/18 19:22 Last Admin: 03/19/18 19:34 Dose: 20 meq - Exam General: Alert, Oriented, Cooperative, No Acute Distress Neck: Supple Lungs: Clear to Auscultation, Normal Respiratory Effort Cardiovascular: Regular Rate, Regular Rhythm GI/Abdominal Exam: Normal Bowel Sounds, Soft, Non-Tender Extremities: Normal Inspection, Normal Range of Motion Psy/Mental Status: Alert, Normal Affect, Normal Mood. No: Anxious, Agitated, Suicidal Ideation, Homicidal Ideation, Hallucinations - Problem List & Annotations (1) Benzodiazepine overdose SNOMED Code(s): 582571895 Code(s): T42.4X1A - POISONING BY BENZODIAZEPINES, ACCIDENTAL, INIT Status: Acute Current Visit: Yes Qualifiers: Encounter type: initial encounter Injury intent: undetermined intent Qualified Code(s): T42.4X4A - Poisoning by benzodiazepines, undetermined, initial encounter (2) Alcohol abuse SNOMED Code(s): 33195746 Code(s): F10.10 - ALCOHOL ABUSE, UNCOMPLICATED Status: Chronic Current Visit: Yes (3) Benzodiazepine abuse SNOMED Code(s): 902482162, 399217787 Code(s): F13.10 - SEDATIVE, HYPNOTIC OR ANXIOLYTIC ABUSE, UNCOMPLICATED Status: Chronic Current Visit: Yes (4) Depression SNOMED Code(s): 14932785 Code(s): F32.9 - MAJOR DEPRESSIVE DISORDER, SINGLE EPISODE, UNSPECIFIED Status: Chronic Current Visit: No - Problem List Review Problem List Initiated/Reviewed/Updated: Yes - Plan Plan:: 27 yo male presented with ETOH intoxication, benzodiazepine overdose and suicidal ideation. 1. Alcohol abuse and benzodiazepine overdose: Alert and oriented today. Denies suicidal ideation today, reports not remembering anything from yesterday. Reports he took Librium for withdrawl symptoms, not with the intention of suicide. We will closely monitor the patient as we detox. We will give thiamine and folic acid. Will place on CIWA protocol, CIWA 8-10 Since no longer suicidal and denies ever being suicidal, will consult Dr Naranjo for tele pysch consultation. Eleazar is hoping to be discharged when accepted into [facility] in [place] for inpatient rehabilitation. VTE prophylaxis: SCDs DIspo: 1-2 days pending placement and detox.
[2018-03-20] MEDS: Nicotine 14 MG/24 Hr Patch TRDERM SCH (17:00)
--- NOTE | 2018-03-20 17:08 | PCM.SN ---
- Free Text/Narrative Note: Spoke with Dr bcek, after Tele pysch consult. Feels patient does not need inpatient psychiatric admission, but does recommend adjustment of medications and to go to rehabilitation as planned. May have component of OCD vs ADHD. Will start Lexapro 30 mg daily in am. Start Seroquel 50 mg at HS along with Topamax 25 mg BID this evening. Monitor. He did recommend continuing 1:1 monitoring this evening and if patient remains stable with medications in the am. Notified Dr Granger of plan as well asn ICU nurse and nursing property maintenance supervisor regarding 1:1 monitoring overnight
[2018-03-20] MEDS: Topiramate 50 MG Tab PO SCH (20:04)
--- NOTE | 2018-03-21 01:01 | CONS ---
DATE OF CONSULTATION: 03/20/2018 DATE OF : 1990 PRIMARY CARE PHYSICIAN: None PCP This is a 60-minute inpatient clinical event. IDENTIFICATION: The patient is a 27-year-old male, who was admitted to the Inpatient MICU at [facility] at [place], [place]. He was seen for psychiatric evaluation. CHIEF COMPLAINT: "Last night or two days ago, I was drinking, I took librium." HISTORY OF PRESENT ILLNESS: The patient is a 27-year-old male, who reports that he has been struggling with alcohol dependence and recently completed a treatment at [facility] at [place] "back in January." He states "I thought I was doing well, but I guess I wasn't." He states that he relapsed soon after discharge, he began drinking up to "40 beers a day lately." He stated that in his intoxicated state, he overdosed on librium "that I got from the ER few days ago, they gave me to detox." The patient denies that he was suicidal prior to being intoxicated, but he does feel that he was trying to kill himself during his intoxicated state because he has been feeling more hopeless and depressed and guilty over the fact that he relapsed. At the present time, the patient denies any suicidal or homicidal, is roger for safety. Denies any psychotic, delusional, or paranoid symptoms. He states however "I think my addiction to alcohol stems from my mental health issues like anxiety." He goes on to not only endorse problems with anxiety but "would experience mood swings" too. The patient also reports "I have insomnia," and he states he has racing thoughts or ruminations distraction. He also states "I cannot focus" and states that he engages in a lot of checking behaviors that are pretty excessive in his mind, and he also states "I got rituals too" and describes where he has to do certain rituals when he is texting or doing things with his smart phone. The patient again is denying suicidal or homicidal. Denies any psychotic, delusional, or paranoid symptoms. He is wanting to go back to the treatment at [facility] and that process has already been initiated, but he is also open to having any type of adjustments made to help with his mental health issues if possible while he is in the unit. MEDICATIONS ON PRESENTATION: Lexapro 20 mg q.a.m. The patient has been on this medication for years with some good results for his mood. ALLERGIES: No known drug allergies. PAST MEDICAL HISTORY: Patient denies. REVIEW OF SYSTEMS: Negative for any acute difficulties or complications currently with his GI, , pulmonary, cardiac, endocrine, hemato-immune, skin, musculoskeletal, nervous systems. FAMILY PSYCHIATRIC AND CD HISTORY: The patient reports father has a history of alcoholism. Mother has a history of depression. He states he has a couple of siblings, they have been diagnosed with ADHD. PAST PSYCHIATRIC AND CD HISTORY: The patient reports one psychiatric hospitalization in June of 2017 up in [place]. Also reports chemical dependency treatment in January at [facility] in [place]. Denies any previous suicide attempts or self-injurious behaviors. Denies any eating disorder history. He is a one [id number] smoker for the past six years. He states his longest sobriety since the drug has become problematic is for about 25 days "when I was in treatment and right after I got out of treatment." Past psychiatric diagnoses includes clinical depression and anxiety. Past psychiatric medication history includes Neurontin which was bad for him, hydroxyzine which was ineffective for him, Wellbutrin which was bad and made him more anxious, propanolol which made him lightheaded, and trazodone which worked for sleep and then Depakote which "I didn't take well enough", do not feel worked enough. SOCIAL HISTORY: The patient was born and raised in [place], [place]. He is the eighth of 9 siblings. The patient's parents were throughout childhood and adolescence. Father worked in construction. Mother was an RN. The patient's highest level education is some college. Patient is currently working out in the [employer] for [employer]. Never been , not in any current relationships, and he does not have any children. He is currently living in [place], [place], with two roommates. He denies any prior service or current legal difficulties. He is raised a Roman Catholic. He enjoys working out, reading, and playing the piano. MENTAL STATUS EXAM: The patient is a 27-year-old white male, in no apparent distress. Speech is of regular rate and rhythm. The patient is cognitively oriented. Psychomotor activities within normal limits. There is no abnormal motor movements or tics observed. Gait is not observed as the patient is sitting up in bed for the purposes of the inpatient consult. The patient is also not observed as the patient is sitting the in bed for the purposes of the inpatient consult. Mood is anxious and depressed. Affect is cooperative overall for the purposes of the inpatient psychiatric consult. There are no behavioral or stated evidence of acute suicidal or homicidal ideation or acute psychotic, delusional, or paranoid symptoms. Thought processes are significant for some racing thoughts and ruminations, however, there are no acute manic symptoms or loose associations evident. Judgment and insight appear unimpaired at this point in time. Motivation for help is good. PHYSICAL EXAMINATION: VITAL SIGNS: At the time of consult; 118/72, 78, 18, 98.6 degrees. IMPRESSION: [place] I: 1. Alcohol dependence, F10.20. 2. Obsessive-compulsive disorder, F42. 3. Bipolar affective disease, F31.60. 4. Rule out major depressive disorder. [place] II: None. [place] III: 1. Possible symptoms of alcohol withdrawal, but otherwise, no known active problems. [place] IV: Severe. [place] V: 55. PLAN: 1. Sobriety. 2. AA. 3. Transfer to chemical dependency treatment when medically stabilized. 4. Discontinue one-to-one in a.m. if the patient is safe throughout the night. 5. Ativan per CIKY protocol. 6. Folic acid supplementation. 7. Thiamine supplementation. 8. Begin Seroquel 50 mg at bedtime for clarity of thoughts, anxiety reduction, sleep initiation, and mood stability. 9. Begin Topamax 25 mg b.i.d. for seizure prophylaxis, anxiety reduction, and mood stability. 10.Increase the patient's Lexapro from 20 mg to 30 mg q.a.m. to help with mood and any symptoms of OCD. 11.If Lexapro proves ineffective for the patient's OCD symptoms, could also consider alternative with a trial of Luvox or Anafranil going forward. 12.We will continue to follow up with the patient on as-needed basis while he remains on the inpatient medical unit at [facility] in [place], [place]. 13.We will follow up with the patient sooner or if any complications in the interim. 14.Other medications and treatment planning as ordered and arranged by the patient's primary inpatient medical treatment team. 15.Crisis plan is in place. KEHINDE / ZION /[id number]
[2018-03-21] MEDS: Topiramate 50 MG Tab PO SCH ×2 (08:06→20:16)
[2018-03-21] MEDS: Folic Acid 1 MG Tab PO SCH (08:07)
[2018-03-21] MEDS: Thiamine 100 MG Tab PO SCH (08:07)
[2018-03-21] MEDS: Escitalopram 10 MG Tab PO SCH (08:07)
--- NOTE | 2018-03-21 10:38 | PCM.PN ---
- General Info Date of Service: 03/21/18 Admission Dx/Problem (Free Text): Admission Diagnosis/Problem Admission Diagnosis/Problem Overdose of analgesic Subjective Update: Feeling good today. No feelings of withdrawl. reports his father is trying to get things arranged to take him to [place]. No chest pain SOB or other concerns. Asking if he is able to go home prior to leaving. Will need to discuss with Dr Naranjo Functional Status: Reports: Pain Controlled, Tolerating Diet, Ambulating, Urinating - Review of Systems General: Reports: No Symptoms. Denies: Fever, Weakness, Fatigue HEENT: Reports: No Symptoms. Denies: Sore Throat, Rhinitis, Visual Changes Pulmonary: Reports: No Symptoms. Denies: Shortness of Breath Cardiovascular: Reports: No Symptoms. Denies: Chest Pain Gastrointestinal: Reports: No Symptoms. Denies: Abdominal Pain, Nausea, Vomiting Musculoskeletal: Reports: No Symptoms. Denies: Neck Pain Neurological: Reports: No Symptoms. Denies: Confusion Psychiatric: Denies: Confusion, Hallucinations, Suicidal Ideation, Homicidal Ideation - Patient Data Vitals - Most Recent: Last Vital Signs Temp 97.0 F 03/21/18 07:53 Pulse 85 03/21/18 07:53 Resp 14 03/21/18 07:53 BP 105/71 03/21/18 07:53 Pulse Ox 95 03/21/18 07:53 Weight - Most Recent: 111.402 kg I&O - Last 24 Hours: Intake & Output 03/20/18 03/21/18 03/21/18 22:59 06:59 14:59 Intake Total 1815 350 Output Total 600 Balance 1815 -250 Med Orders - Current: Current Medications Escitalopram Oxalate (Lexapro) 30 mg PO DAILY [facility] Last Admin: 03/21/18 08:07 Dose: 30 mg Folic Acid (Folic Acid) 1 mg PO DAILY [facility] Last Admin: 03/21/18 08:07 Dose: 1 mg Lorazepam (Ativan) 0 mg IVPUSH Q4H PRN; Protocol PRN Reason: Agitation Nicotine (Habitrol) 14 mg TRDERM Q24H [facility] Last Admin: 03/20/18 17:00 Dose: 14 mg Ondansetron HCl (Zofran) 4 mg IVPUSH Q4H PRN PRN Reason: Nausea Quetiapine Fumarate (Seroquel) 50 mg PO BEDTIME [facility] Last Admin: 03/20/18 20:04 Dose: 50 mg Sodium Chloride (Saline Flush) 10 ml FLUSH ASDIRECTED PRN PRN Reason: Keep Vein Open Sodium Chloride (Saline Flush) 2.5 ml FLUSH ASDIRECTED PRN PRN Reason: Keep Vein Open Thiamine HCl (Vitamin B-1) 100 mg PO DAILY [facility] Last Admin: 03/21/18 08:07 Dose: 100 mg Topiramate (Topamax) 25 mg PO BID [facility] Last Admin: 03/21/18 08:06 Dose: 25 mg Discontinued Medications Sodium Chloride (Normal Saline) 1,000 mls @ 999 mls/hr IV STAT ONE Stop: 03/19/18 13:22 Last Admin: 03/19/18 12:56 Dose: 999 mls/hr Multivitamins/Minerals 20 ml/Thiamine HCl 100 mg/ Folic Acid 1 mg/ Sodium Chloride 1,021.2 mls @ 250 drops/hr IV ONETIME ONE Stop: 03/22/18 03:00 Last Admin: 03/19/18 15:31 Dose: Not Given Multivitamins/Minerals 10 ml/Thiamine HCl 100 mg/ Folic Acid 1 mg/ Potassium Chloride 20 meq/ Sodium Chloride 1,021.2 mls @ 150 mls/hr IV ONETIME ONE Stop: 03/19/18 21:03 Last Infusion: 03/19/18 14:38 Dose: 150 mls/hr Sodium Chloride (Normal Saline) 1,000 mls @ 125 mls/hr IV ASDIRECTED [facility] Last Admin: 03/20/18 13:25 Dose: 125 mls/hr Potassium Chloride (Klor-Con M20) 20 meq PO ONETIME ONE Stop: 03/19/18 19:22 Last Admin: 03/19/18 19:34 Dose: 20 meq - Exam General: Alert, Oriented, Cooperative, No Acute Distress Lungs: Clear to Auscultation, Normal Respiratory Effort Cardiovascular: Regular Rate, Regular Rhythm GI/Abdominal Exam: Normal Bowel Sounds, Soft, Non-Tender Neurological: No New Focal Deficit Psy/Mental Status: Alert, Normal Affect, Normal Mood. No: Anxious, Agitated, Suicidal Ideation, Homicidal Ideation, Withdrawal Symptoms - Problem List & Annotations (1) Benzodiazepine overdose SNOMED Code(s): 561406312 Code(s): T42.4X1A - POISONING BY BENZODIAZEPINES, ACCIDENTAL, INIT Status: Acute Current Visit: Yes Qualifiers: Encounter type: initial encounter Injury intent: undetermined intent Qualified Code(s): T42.4X4A - Poisoning by benzodiazepines, undetermined, initial encounter (2) Alcohol abuse SNOMED Code(s): 24897834 Code(s): F10.10 - ALCOHOL ABUSE, UNCOMPLICATED Status: Chronic Current Visit: Yes (3) Benzodiazepine abuse SNOMED Code(s): 058464593, 007691735 Code(s): F13.10 - SEDATIVE, HYPNOTIC OR ANXIOLYTIC ABUSE, UNCOMPLICATED Status: Chronic Current Visit: Yes (4) Depression SNOMED Code(s): 00882187 Code(s): F32.9 - MAJOR DEPRESSIVE DISORDER, SINGLE EPISODE, UNSPECIFIED Status: Chronic Current Visit: No - Problem List Review Problem List Initiated/Reviewed/Updated: Yes - My Orders Last 24 Hours: My Active Orders 03/20/18 17:02 Consult to Physician [CONS] Routine 03/20/18 17:05 Notify Provider Consults [RC] ASDIRECTED 03/20/18 21:00 QUEtiapine [SEROquel] 50 mg PO BEDTIME Topiramate [Topamax] 25 mg PO BID 03/21/18 08:00 Vibration Technician Discontinue [Cardiac Monitoring Discontinue] [RC] Click to Edit 03/21/18 08:01 Communication Order [RC] PRN 03/21/18 09:00 Escitalopram [Lexapro] 30 mg PO DAILY - Plan Plan:: 27 yo male presented with ETOH intoxication, benzodiazepine overdose and suicidal ideation. 1. Alcohol abuse and benzodiazepine overdose: Alert and oriented today. Continues to deny suicidal ideation today. We will closely monitor the patient as we detox. Continue thiamine and folic acid. Continue Lexapro, Seroquel and Topamax as recommended per Dr Naranjo. Discontinue 1:1. Will place on CIWA protocol, CIWAA 0-3. Eleazar is hoping to be discharged when accepted into [facility] in [place] for inpatient rehabilitation. Dr Naranjo feels we should not discharge home, but directly into father's care for transfer to rehabilitation center. Eleazar understands this due to the risk of him relapsing and drinking again. Continue monitoring for DTs. VTE prophylaxis: SCDs DIspo: 1-2 days pending placement and detox. Will mke Med/surg status today under direct observation at all times.
[2018-03-21] MEDS: Nicotine 14 MG/24 Hr Patch TRDERM SCH (15:27)
[2018-03-22] MEDS: Escitalopram 10 MG Tab PO SCH (08:44)
[2018-03-22] MEDS: Folic Acid 1 MG Tab PO SCH (08:44)
[2018-03-22] MEDS: Thiamine 100 MG Tab PO SCH (08:44)
[2018-03-22] MEDS: Topiramate 50 MG Tab PO SCH (08:45)
--- NOTE | 2018-03-22 09:40 | PCM.DCSUM1 ---
Discharge Summary - Hospital Course Brief History: 27 yo male with pmh of ETOH abuse and dependence who three days ago was seen in the ED and was prescribed Librium to help with alcohol withdrawal. Today patient reported he drank a lot and then took all the Librium he had left which supposedly was around 300mg. He thought that since he took the pills that it meant he tried to kill himself. He reports drinking about 40 beers a day. He reports being discharged from inpatient rehab last January. - Discharge Data Discharge Date: 03/22/18 Discharge Disposition: Home, Self-Care 01 Condition: Stable - Discharge Diagnosis/Problem(s) (1) Benzodiazepine overdose SNOMED Code(s): 034569176 ICD Code: T42.4X1A - POISONING BY BENZODIAZEPINES, ACCIDENTAL, INIT Status : Acute Current Visit: Yes Qualifiers: Encounter type: initial encounter Injury intent: undetermined intent Qualified Code(s): T42.4X4A - Poisoning by benzodiazepines, undetermined, initial encounter (2) Alcohol abuse SNOMED Code(s): 61956787 ICD Code: F10.10 - ALCOHOL ABUSE, UNCOMPLICATED Status: Chronic Current Visit: Yes (3) Benzodiazepine abuse SNOMED Code(s): 583729673, 952179623 ICD Code: F13.10 - SEDATIVE, HYPNOTIC OR ANXIOLYTIC ABUSE, UNCOMPLICATED Status: Chronic Current Visit: Yes (4) Depression SNOMED Code(s): 69396105 ICD Code: F32.9 - MAJOR DEPRESSIVE DISORDER, SINGLE EPISODE, UNSPECIFIED Status: Chronic Current Visit: No - Patient Summary/Data Consults: Consultations 03/20/18 17:02 Consult to Physician [CONS] Routine - Patient Instructions Diet: Regular Diet as Tolerated Activity: No Strenuous Activities Driving: Do Not Drive Showering/Bathing: May Shower Other/Special Instructions: To be discharged with father and stay with him until rehabilitation has re-contacted you for admission. - Discharge Plan Prescriptions/Med Rec: Escitalopram [Lexapro] 30 mg PO DAILY 30 Days #90 tablet Folic Acid 1 mg PO DAILY #30 tablet QUEtiapine Fumarate [Seroquel] 50 mg PO BEDTIME #30 tablet Thiamine [Vitamin B-1] 100 mg PO DAILY #30 tablet Topiramate [Topamax] 25 mg PO BID #60 tab Home Medications: Home Meds Escitalopram [Lexapro] 30 mg PO DAILY 30 Days #90 tablet 07/05/18 [Rx] Folic Acid 1 mg PO DAILY #30 tablet 03/22/18 [Rx] QUEtiapine Fumarate [Seroquel] 50 mg PO BEDTIME #30 tablet 03/22/18 [Rx] Thiamine [Vitamin B-1] 100 mg PO DAILY #30 tablet 03/22/18 [Rx] Topiramate [Topamax] 25 mg PO BID #60 tab 03/22/18 [Rx] Patient Handouts: Alcohol Use Disorder, Chemical Dependency, Substance Use Disorder - Discharge Summary/Plan Comment DC Time >30 min.: No Discharge Summary/Plan Comment: Discharge Diagnoses: Benzodiazepine overdose Depression OCD Alcohol Abuse Eleazar was admitted after he took Librium approximetly 300 mg while intoxicated. At the time he took this he had been threatening suicide. He was admitted and monitored in the ICU. When he was more alert, he no longer felt suicidal and didn't really remember the evening prior when these events occured. He was monitored for alcohol withdrawl and he is actively wanting help to quit drinking. He previously has already sought out treatment at a [facility] in [place], [place] where he was initially accepted but is now under review after this event. He is every eager to be discharged and head to this rehabilitation center for further inpatient help. Dr Naranjo, psychiatry was consulted and felt patient was a good canidate for rehabilitation and recommended this. He also recommended adjusting his medications. We increased Lexapro to 30 mg daily. Added Seroquel 50 mg at bedtime and Topamax 25 mg BID. He was also supplemented with Thiamine and Folic acid. His father is coming today to pick him up and will bring him to [place], [place] for treatment. He is awaiting final acceptance to [facility]. He is safe to be discharged home with Father and is to stay with family until he is brought to the rehabilitation center. Encouraged to refrain from all alcohol, which he agrees to and continues to denies suicidal and homicidal ideation. He is to return to ED or clinic if concerns should arise. - General Info Date of Service: 03/22/18 Admission Dx/Problem (Free Text: Admission Diagnosis/Problem Admission Diagnosis/Problem Overdose of analgesic Subjective Update: Alert oriented. No withdrawal symptoms noted. Eager to go to rehabilitation. - Review of Systems General: Reports: No Symptoms. Denies: Fever, Weakness Pulmonary: Reports: No Symptoms. Denies: Shortness of Breath Cardiovascular: Reports: No Symptoms. Denies: Chest Pain Gastrointestinal: Reports: No Symptoms. Denies: Abdominal Pain, Nausea, Vomiting Psychiatric: Reports: No Symptoms. Denies: Anxiety, Agitation, Suicidal Ideation, Homicidal Ideation - Patient Data Vitals - Most Recent: Last Vital Signs Temp 97.2 F 03/22/18 07:45 Pulse 72 03/22/18 05:07 Resp 12 03/22/18 07:45 BP 109/69 03/22/18 07:45 Pulse Ox 95 03/22/18 07:45 Weight - Most Recent: 111.402 kg I&O - Last 24 hours: Intake & Output 03/21/18 03/22/18 03/22/18 22:59 06:59 14:59 Intake Total 1000 500 Output Total 1800 0 Balance -800 500 Med Orders - Current: Current Medications Escitalopram Oxalate (Lexapro) 30 mg PO DAILY [facility] Last Admin: 03/22/18 08:44 Dose: 30 mg Folic Acid (Folic Acid) 1 mg PO DAILY [facility] Last Admin: 03/22/18 08:44 Dose: 1 mg Lorazepam (Ativan) 0 mg IVPUSH Q4H PRN; Protocol PRN Reason: Agitation Nicotine (Habitrol) 14 mg TRDERM Q24H [facility] Last Admin: 03/21/18 15:27 Dose: 14 mg Ondansetron HCl (Zofran) 4 mg IVPUSH Q4H PRN PRN Reason: Nausea Quetiapine Fumarate (Seroquel) 50 mg PO BEDTIME [facility] Last Admin: 03/21/18 20:17 Dose: 50 mg Sodium Chloride (Saline Flush) 10 ml FLUSH ASDIRECTED PRN PRN Reason: Keep Vein Open Sodium Chloride (Saline Flush) 2.5 ml FLUSH ASDIRECTED PRN PRN Reason: Keep Vein Open Thiamine HCl (Vitamin B-1) 100 mg PO DAILY [facility] Last Admin: 03/22/18 08:44 Dose: 100 mg Topiramate (Topamax) 25 mg PO BID [facility] Last Admin: 03/22/18 08:45 Dose: 25 mg Discontinued Medications Sodium Chloride (Normal Saline) 1,000 mls @ 999 mls/hr IV STAT ONE Stop: 03/19/18 13:22 Last Admin: 03/19/18 12:56 Dose: 999 mls/hr Multivitamins/Minerals 20 ml/Thiamine HCl 100 mg/ Folic Acid 1 mg/ Sodium Chloride 1,021.2 mls @ 250 drops/hr IV ONETIME ONE Stop: 03/22/18 03:00 Last Admin: 03/19/18 15:31 Dose: Not Given Multivitamins/Minerals 10 ml/Thiamine HCl 100 mg/ Folic Acid 1 mg/ Potassium Chloride 20 meq/ Sodium Chloride 1,021.2 mls @ 150 mls/hr IV ONETIME ONE Stop: 03/19/18 21:03 Last Infusion: 03/19/18 14:38 Dose: 150 mls/hr Sodium Chloride (Normal Saline) 1,000 mls @ 125 mls/hr IV ASDIRECTED [facility] Last Admin: 03/20/18 13:25 Dose: 125 mls/hr Potassium Chloride (Klor-Con M20) 20 meq PO ONETIME ONE Stop: 03/19/18 19:22 Last Admin: 03/19/18 19:34 Dose: 20 meq - Exam General: Reports: Alert, Oriented, Cooperative, No Acute Distress Lungs: Reports: Clear to Auscultation, Normal Respiratory Effort Cardiovascular: Reports: Regular Rate, Regular Rhythm Extremities: Normal Inspection, Normal Range of Motion, Non-Tender Neurological: Reports: No New Focal Deficit Psy/Mental Status: Reports: Alert, Normal Affect, Normal Mood. Denies: Anxious , Agitated, Suicidal Ideation, Homicidal Ideation, Withdrawal Symptoms
== END 2018-03-22 13:00 | disposition home or self-care (01) | DRG 812 ==
LOC: MW.ED 12:07 → MW.ICU 15:11 → OBSVTOIN 15:38 → MW.MS 03-21 15:48
PROVIDERS: ADMIT Internal Medicine; ATTEND Internal Medicine
DX: T42.4X4A Poisoning by benzodiazepines, undetermined, initial encounter (principal); F10.10 Alcohol abuse, uncomplicated; F13.10 Sedative, hypnotic or anxiolytic abuse, uncomplicated; F32.9 Major depressive disorder, single episode, unspecified; F42.9 Obsessive-compulsive disorder, unspecified; F31.60 Bipolar disorder, current episode mixed, unspecified; Z79.899 Other long term (current) drug therapy
CPT/HCPCS: 36415; 80048; 80053; 80305-QW; 81001; 83735; 84443; 85025; 93005; 96361; 96365; 99285-25; A9270-GY; G0480; J3411; J3480; J7040